=== PATIENT | male | born 1960 | race Caucasian/White ===

== ENCOUNTER → 2018-12-21 | Outpatient (CLI) | payer OTHER ==
--- NOTE | 2018-12-21 17:09 | CARDNUC ---
[place] [address] CARDIAC NUCLEAR IMAGING REPORT Name: JEOVANY REECE Room: [facility]#: [id number] Admission: 12/21/18 Attend Phys: Alicia Marcus MD Discharge: Date of : 62 Date of Service: 12/21/18 1709 Report #: [id number] THIS REPORT FOR: //name// APPROVED REPORT Imaging Protocol: Stress Tc-99m/Rest Tc-99m 1 day Study performed: 12/21/2018 08:45:00 Indication: Dyspnea Patient Location: Out-Patient Stress Tech: Doyle Sin Stress Nurse: Shannon Adams RN Ht: 5 ft 10 in Wt: 198 lbs BSA: 2.08 m2 BMI: 28.40 Medical History Medical History: HTN, Hyperlipidemia Medications: Lisinopril Allergies: penicillin Cardiac Risk Factors: Age, Hyperlipidemia, HTN Exercise History: Physically active Resting Data Rest SPECT myocardial perfusion imaging was performed in supine position 30 minutes following the intravenous injection of 10.6 mCi of Tc-99m Sestamibi. Time of rest injection: 08:55 The images were gated to evaluate regional wall motion and calculate left ventricular ejection fraction. Administration Route: IV Administration Site: Right Hand Exercise Stress At peak stress, the patient was injected intravenously with 30.0mCi of Tc-99m Sestamibi. Time of stress injection: 11:35 Administration Route: IV Administration Site: Right Hand Heart Rate at time of stress injection: 169 bpm. Gated Stress SPECT was performed 30 minutes after stress injection. The images were gated to evaluate regional wall motion and calculate left ventricular ejection fraction. [place] [address] CARDIAC NUCLEAR IMAGING REPORT Name: JEOVANY REECE Room: [facility]#: [id number] Admission: 12/21/18 Attend Phys: Alicia Marcus MD Discharge: Date of : 62 Date of Service: 12/21/18 1709 Report #: [id number] Stress Test Details Stress Test: Exercise stress testing was performed using a Raymond protocol. HR Max Heart Rate (APMHR): 163 bpm Resting HR: 59 bpm Target HR (85% APMHR): 138 bpm Max HR Achieved: 169 bpm % of APMHR: 103 Recovery HR: 95 bpm HR response to stress: Normal HR response to stress BP Resting BP: 145/107 mmHg Max BP: 202/94 mmHg Recovery BP: 122/77 mmHg BP response to stress: Normal blood pressure response to stress. ECG Resting ECG: Sinus Rhythm Stress ECG: Sinus Tachycardia ST Change: None Arrhythmia: None Recovery ECG: Sinus Rhythm Recovery ST Change: None Recovery Arrhythmia: None Clinical Reason for Termination: Dyspnea, Fatigue Exercise duration: 11 min sec Exercise capacity: 13.47 METs Overall Exercise Capacity for Age: Superior Functional Aerobic Impairment 104% The patient exhibited excellent exercise tolerance. The patient tolerated stent respiratory exercise without significant cardiac symptoms. Stress ECG Conclusion The baseline 12-lead EKG shows sinus rhythm without significant ST or T wave abnormality. EKGs during and post exercise showed sinus rhythm and sinus tachycardia with no significant ST or T wave changes when compared to baseline. There were no stress-induced arrhythmias. Study Quality Study: [place] [address] CARDIAC NUCLEAR IMAGING REPORT Name: JEOVANY REECE Room: [facility]#: [id number] Admission: 12/21/18 Attend Phys: Aliica Marcus MD Discharge: Date of : 62 Date of Service: 12/21/18 1709 Report #: [id number] Artifact: No artifact Study Data At rest, the left ventricular ejection fraction was 60%.. Post stress, the left ventricular ejection was 68%.. TID = 0.70. Perfusion Normal left ventricular perfusion. Wall Motion Normal left ventricular wall motion. Nuclear Conclusion ECG Findings: negative for ischemia Clinical Findings: negative for ischemia Nuclear Findings: negative for ischemia Exercise Capacity: normal Left Ventricular Function: normal Risk Study: low Perfusion images show no defect to suggest infarct or ischemia. Left ventricular systolic function is normal on gated studies. This is a low risk study. <Conclusion> The baseline 12-lead EKG shows sinus rhythm without significant ST or T wave abnormality. EKGs during and post exercise showed sinus rhythm and sinus tachycardia with no significant ST or T wave changes when compared to baseline. There were no stress-induced arrhythmias. <ELECTRONICALLY SIGNED> By: Yousuf Max MD, FACC 12/21/181708 08 08 Yousuf Max MD, FACC /INF
--- NOTE | 2018-12-24 10:49 | TST ---
[place] [address] TREADMILL STRESS TEST Name: JEOVANY REECE Room: [facility]#: [id number] Admission: 12/21/18 Attend Phys: Alicia Marcus MD Discharge: Date of : 62 Date of Service: 12/21/181705 Report #: [id number] THIS REPORT FOR: //name// CC: Alicia Marcus MD DATE OF SERVICE: 12/21/2018 INDICATION: Dyspnea. CARDIAC HISTORY: None. CARDIAC RISK FACTORS: Age greater than 45, hyperlipidemia, hypertension, and family history of coronary artery disease. CARDIAC MEDICATIONS: Lisinopril/hydrochlorothiazide and rosuvastatin. Dictation Ends Here. <ELECTRONICALLY SIGNED> By: Yousuf Max MD, FACC 12/24/18 1049 1706 1722 Yousuf Max MD, FACC /nt
== END ==
LOC: M.NUC 12-04 09:20
DX: R06.02 Shortness of breath (principal); E78.5 Hyperlipidemia, unspecified; I10 Essential (primary) hypertension; Z82.49 Family history of ischemic heart disease and other diseases of the circulatory system